=== PATIENT | female | born 1950 ===

== ENCOUNTER 2016-11-05 10:11 | Emergency (ER) | payer MEDICARE, OTHER ==
--- NOTE | 2016-11-05 11:29 | ED PDOC ---
HPI: Seizure Time Seen by Provider: 11/05/16 10:51 Chief Complaint (Nursing): Seizure Chief Complaint (Provider): Seizure History Per: Family History/Exam Limitations: clinical condition Recent Seizure Activity Began: Just Before Arrival Number Of Seizures: One Length Of Seizures (Duration): Minutes (2) Quality Of Seizure: Generalized Associated Symptoms: denies: Bit Tongue, Injury As A Result Of Seizure Activity Post-ictal Period: Yes Severity: Moderate Additional History Per: Family Additional Complaint(s): The pt is a 66yo female, Hx of dementia, brought to the ED by her daughter for evaluation s/p the daughter witnessed a seizure around 0930 this morning. A full HPI and ROS is unavailable from the pt due to her clinical condition, daughter is serving as historian. Daughter reports the pt was lying on couch when the symptoms started and the seizure lasted about 2 minutes with a post ictal period. Daughter denies any tongue biting and is unsure about incontinence. Of note, daughter states the pt has just finished a course of Bactrim 4 days ago for a UTI, denies any fever. Of note, pt is on Lamictal, Imodium and is complaint per daughter. Daughter offers no additional medical complaints. Past Medical History Reviewed: Historical Data, Nursing Documentation, Vital Signs Vital Signs: Last Vital Signs Temp 97.5 F L 11/05/16 16:14 Pulse 67 11/05/16 16:14 Resp 18 11/05/16 16:14 BP 126/72 11/05/16 16:14 Pulse Ox 99 11/05/16 16:14 - Medical History PMH: Alzheimer's Disease, CVA, Dementia, Depression, Diabetes, HTN, Seizures Denies: Arthritis, CHF, HIV, Hypercholesterolemia, Hypothyroidism, Chronic Kidney Disease, Rheumatoid Arthritis - Family History Family History: States: Unknown Family Hx - Living Arrangements Living Arrangements: With Family - Social History Current smoker - smoking cessation education provided: No Alcohol: None Drugs: Denies - Home Medications Home Medications: Ambulatory Orders Medication Instructions Recorded Aspirin [Aspirin Chewable] 81 mg PO DAILY 02/27/16 Donepezil [Aricept] 10 mg PO DAILY 02/27/16 Escitalopram [Lexapro] 10 mg PO DAILY 02/27/16 Carbidopa/Levodopa 25/100 mg 1 tab PO TIDWM #0 tab 02/28/16 [Sinemet] lamoTRIgine [Lamictal] 50 mg PO BID #0 tab 02/28/16 Loperamide [Imodium] 2 mg PO Q8 #10 cap 04/13/16 Azithromycin [Zithromax] 250 mg PO DAILY 5 Days 05/13/16 - Allergies Allergies/Adverse Reactions: Allergies Allergy/AdvReac Type Severity Reaction Status Date / Time No Known Allergies Allergy Verified 11/05/16 10:21 Review of Systems ROS Statement: Except As Marked, All Systems Reviewed And Found Negative Review Of Systems: ROS cannot be obtained secondary to pt's inabilty to answer questions. Constitutional: Negative for: Fever Genitourinary Female: Negative for: Incontinence Neurological: Positive for: Seizures (1 episode witnessed by daughter before arrival), Other (post ictal) Physical Exam - Reviewed Nursing Documentation Reviewed: Yes Vital Signs Reviewed: Yes - Physical Exam Appears: Positive for: Well, Non-toxic, No Acute Distress Head Exam: Positive for: ATRAUMATIC Skin: Positive for: Normal Color, Warm Eye Exam: Positive for: Normal appearance, EOMI, PERRL Neck: Positive for: Normal, Supple Cardiovascular/Chest: Positive for: Regular Rate, Rhythm Respiratory: Positive for: Normal Breath Sounds. Negative for: Respiratory Distress Neurologic/Psych: Positive for: Other (pt currently post ictal) - Laboratory Results Result Diagrams: 11/05/16 11:30 11/05/16 11:30 - ECG O2 Sat by Pulse Oximetry: 97 (RA) Pulse Ox Interpretation: Normal Medical Decision Making Medical Decision Making: Time: 1105 Impression: Seizure Plan: -- Bloodwork -- CXR -- Lamotrigine levels -- Reassess CT Head was done in a previous visit. Findings listed below: EXAM: CT Head Without Intravenous Contrast. CLINICAL HISTORY: 65 years old, female; Signs and symptoms; Altered mental status/memory loss; Additional info: AMS TECHNIQUE: Axial computed tomography images of the head/brain without intravenous contrast. This CT exam was performed using one or more of the following dose reduction techniques: automated exposure control, adjustment of the mA and/or kV according to patient size, and/or use of iterative reconstruction technique. Coronal and sagittal reformatted images were created and reviewed. EXAM DATE/TIME: Exam ordered 05/13/2016 2:23 AM COMPARISON: CT - HEAD W/O CONTRAST 02/27/2016 7:07:35 AM FINDINGS: Brain: There is atrophy which is similar appearance to previous study of February 27, 2016. There is no evidence of mass lesion or midline shift. No hemorrhage. No edema. Ventricles: Prominent, stable. Bones: No fractures are seen. Sinuses: There is no evidence of air-fluid levels to suggest acute sinusitis. Mastoid air cells: Unremarkable as visualized. No mastoid effusion. Orbits: The intraconal fat of the bilateral orbits appears within normal limits and symmetric. IMPRESSION: Stable appearance of the brain compared to previous study of February 27, 2016, with no evidence of acute intracranial hemorrhage. Atrophy greater than typical for age. No abnormality suspicious for acute stroke by noncontrast head CT. If there is clinical suspicion for stroke, please note that other modalities are considered to be more sensitive than noncontrast head CT. Time: [address] Hutchinson who agrees, pt to be d.c home. Scribe Attestation: Documented by Viviane Moraes acting as a scribe for Noy Cohen MD. Provider Attestation: All medical record entries made by the Scribe were at my direction and personally dictated by me. I have reviewed the chart and agree that the record accurately reflects my personal performance of the history, physical exam, medical decision making, and the department course for this patient. I have also personally directed, reviewed, and agree with the discharge instructions and disposition. Disposition - Clinical Impression Clinical Impression: Recurrent seizures - Patient ED Disposition Is Patient to be Admitted: No - Disposition Referrals: Raz Hutchinson MD [Staff Provider] - Disposition: Routine/Home Disposition Time: 14:43 Condition: STABLE Instructions: Recurrent Seizures in Adults (ED)
[2016-11-05 11:56] LABS: ALB/GLOB RATIO 1.4 (1.0-2.1); ALBUMIN 4.1 g/dL (3.5-5.0); CALCIUM 9.5 mg/dL (8.4-10.2)
[2016-11-05 12:03] LABS: BASO % 0.1 % (0.0-2.0); EOS % 0.5 % (0.0-4.0); HEMOGLOBIN 13.5 g/dL (12.0-16.0); LYMPH % 9.9 % (20.0-40.0); MEAN CELL VOLUME 85.6 fl (81.0-99.0); MEAN CORPUSCULAR HEMOGLOBIN 27.6 pg (27.0-31.0); MEAN CORPUSCULAR HGB CONC 32.3 g/dL (33.0-37.0); MEAN PLATELET VOLUME 8.6 fl (7.2-11.7); MONO # 0.4 K/uL (0.0-0.8); MONO % 4.5 % (0.0-10.0); NEUT # 8.4 K/uL (1.8-7.0); PLATELET COUNT 134 K/uL (130-400); RED CELL DISTRIBUTION WIDTH 13.9 % (11.5-14.5); WHITE BLOOD COUNT 9.9 K/uL (4.8-10.8)
[2016-11-05] MEDS ORDERED: Sodium Chloride 0.9% 1,000 ML IV STA (12:38)
--- NOTE | 2016-11-05 13:05 | RAD ---
HISTORY: Seizure COMPARISON: Comparison chest dated 05/13/2016 FINDINGS: LUNGS: Poor inspiration with low lung volumes, crowded bronchovascular markings and mild bibasilar atelectasis. The central pulmonary vasculature is also slightly increased likely due to poor inspiration and supine patient positioning. PLEURA: No significant pleural effusion identified, no pneumothorax apparent. CARDIOVASCULAR: Normal. OSSEOUS STRUCTURES: No significant abnormalities. VISUALIZED UPPER ABDOMEN: Normal. OTHER FINDINGS: None. IMPRESSION: Poor inspiration with low lung volumes, crowded bronchovascular markings and mild bibasilar atelectasis. The central pulmonary vasculature is also slightly increased likely due to poor inspiration and supine patient positioning.
[2016-11-05 13:47] LABS: LYMPHOCYTE 10 % (20-50); MONOCYTE 4 % (0-10); NEUTROPHIL 86 % (42-75); PLATELET ESTIMATE SLIGHTLY DECREASED (NORMAL); TOTAL CELLS COUNTED 100
[2016-11-05 14:22] LABS: SQUAMOUS EPITHIAL < 1 /hpf (0-5); URINE BILIRUBIN NEGATIVE (NEGATIVE); URINE BLOOD NEGATIVE (NEGATIVE); URINE CLARITY CLEAR (Clear); URINE COLOR YELLOW (YELLOW); URINE GLUCOSE (UA) NEG (Normal); URINE LEUKOCYTE ESTERASE NEG Leu/uL (Negative); URINE NITRATE NEGATIVE (NEGATIVE); URINE PROTEIN 100 mg/dL (NEGATIVE); URINE UROBILINOGEN 0.2-1.0 mg/dL (0.2-1.0)
[2016-11-05 16:17] VITALS: BP 126/72; PULSE 67; RESP 18; TEMP 97.5
[2016-11-07 10:50] LABS: LAMOTRIGINE 1.2 mcg/mL (4.0-18.0)
--- NOTE | 2016-11-07 11:50 | CARD ---
APPROVED REPORT EKG Measurement Heart [id number] IA [id number] <Conclusion> Normal sinus rhythm Cannot rule out Inferior infarct, age undetermined Possible Anterolateral infarct, age undetermined Abnormal ECG
[2016-11-14 09:39] VITALS: O2SAT 97
== END 2016-11-05 16:17 | disposition home or self-care (01) ==
LOC: H.ER 10:11
DX: R56.9 Unspecified convulsions (principal); F03.90 Unspecified dementia, unspecified severity, without behavioral disturbance, psychotic disturbance, mood disturbance, and anxiety; E11.9 Type 2 diabetes mellitus without complications
CPT/HCPCS: 71010; 80053; 80299; 81003; 82948; 85025; 93005; 99285; J7040

== ENCOUNTER 2017-06-14 10:51 | Emergency (ER) | payer MEDICARE, OTHER ==
[2017-06-14 10:54] VITALS: BMI 29.0
[2017-06-14] MEDS ORDERED: Sodium Chloride 0.9% 1,000 ML IV STA (11:05)
--- NOTE | 2017-06-14 11:09 | ED PDOC ---
HPI: Neurologic - General Time Seen by Provider: 06/14/17 10:55 Chief Complaint (Provider): Seizure Source: family Exam Limitations: clinical condition - History of Present Illness Allergies/Adverse Reactions: Allergies No Known Allergies Allergy (Verified 11/05/16 10:21) Home Medications: Ambulatory Orders Aspirin [Aspirin Chewable] 81 mg PO DAILY 02/27/16 Donepezil [Aricept] 10 mg PO DAILY 02/27/16 Escitalopram [Lexapro] 10 mg PO DAILY 02/27/16 Carbidopa/Levodopa 25/100 mg [Sinemet] 1 tab PO TIDWM #0 tab 02/28/16 lamoTRIgine [Lamictal] 50 mg PO BID #0 tab 02/28/16 Loperamide [Imodium] 2 mg PO Q8 #10 cap 04/13/16 Azithromycin [Zithromax] 250 mg PO DAILY 5 Days tab 05/13/16 Additional Complaint(s): Pt. was being taken to the bathroom by daughter today morning. After moving her bowel pt. had foaming at the mouth, tightening of her extremities. Lasted 10 seconds and had decreased responsiveness after. Pt. getting better now per daughter. Daughter states pt. has seizures and this is not new. Did not hit her head. She gets seizures when on antibiotics or gets infection. She is on day 7 of bactrim for uti and uri. Pt. limited h and p as she has dementia and stroke. Pt. with some cough. No runny nose. No diarrhea or vomit. Past Medical History Reviewed: Nursing Documentation, Vital Signs Vital Signs: Last Vital Signs Temp 97.0 F L 06/14/17 10:53 Pulse 95 H 06/14/17 10:53 Resp 16 06/14/17 10:53 BP 127/70 06/14/17 10:53 Pulse Ox 95 06/14/17 10:53 - Medical History PMH: Alzheimer's Disease, CVA (R side weakness), Dementia, Depression, Diabetes , HTN, Seizures Denies: Arthritis, CHF, HIV, Hypercholesterolemia, Hypothyroidism, Chronic Kidney Disease, Rheumatoid Arthritis - Family History Family History: States: Unknown Family Hx - Home Medications Home Medications: Ambulatory Orders Medication Instructions Recorded Aspirin [Aspirin Chewable] 81 mg PO DAILY 02/27/16 Donepezil [Aricept] 10 mg PO DAILY 02/27/16 Escitalopram [Lexapro] 10 mg PO DAILY 02/27/16 Carbidopa/Levodopa 25/100 mg 1 tab PO TIDWM #0 tab 02/28/16 [Sinemet] lamoTRIgine [Lamictal] 50 mg PO BID #0 tab 02/28/16 Loperamide [Imodium] 2 mg PO Q8 #10 cap 04/13/16 Azithromycin [Zithromax] 250 mg PO DAILY 5 Days tab 05/13/16 - Allergies Allergies/Adverse Reactions: Allergies Allergy/AdvReac Type Severity Reaction Status Date / Time No Known Allergies Allergy Verified 11/05/16 10:21 Review of Systems Review Of Systems: ROS cannot be obtained secondary to pt's inabilty to answer questions. Physical Exam - Reviewed Nursing Documentation Reviewed: Yes Vital Signs Reviewed: Yes - Physical Exam Appears: Positive for: Non-toxic, No Acute Distress Head Exam: Positive for: ATRAUMATIC, NORMAL INSPECTION, NORMOCEPHALIC Skin: Positive for: Normal Color, Warm, DRY Eye Exam: Positive for: PERRL ENT: Positive for: Normal ENT Inspection. Negative for: Nasal Congestion, Pharyngeal Erythema Neck: Positive for: Normal, Painless ROM, Supple Cardiovascular/Chest: Positive for: Regular Rate, Rhythm Respiratory: Positive for: Normal Breath Sounds. Negative for: Accessory Muscle Use Gastrointestinal/Abdominal: Positive for: Normal Exam, Bowel Sounds, Soft. Negative for: Tenderness Back: Positive for: Normal Inspection. Negative for: L CVA Tenderness, R CVA Tenderness Extremity: Negative for: Tenderness, Pedal Edema Neurologic/Psych: Positive for: Alert (moderately), Other (does not follow commands; moving extremities mildly on will; not communicating) - Laboratory Results Result Diagrams: 06/14/17 11:55 06/14/17 11:55 Interpretation Of Abn Labs: 1.3 cr - ECG ECG: Positive for: Interpreted By Me, Viewed By Me ECG Rhythm: Positive for: Normal QRS, Sinus Rhythm, Nonspecific Changes Interpretation Of Abn EKG: same as old O2 Sat by Pulse Oximetry: 95 Pulse Ox Interpretation: Normal - Radiology X-Ray: Read By Radiologist X-Ray Interpretation: No Acute Disease - CT Scan/US head Other Rad Studies (CT/US): Read By Radiologist Other Rad Interpretation: no acute - Progress ED Course And Treament: 1332: Stable. AAOx3. Pain free. Tolerated PO. Ambulated. CR borderline. Pt. daughter aware and to fu. 1356: Stable. Spoke with Dr. Hutchinson. Agree to dc and fu. No additional tx. Disposition - Clinical Impression Clinical Impression: Seizure - Patient ED Disposition Is Patient to be Admitted: No Counseled Patient/Family Regarding: Studies Performed, Diagnosis, Need For Followup - Disposition Referrals: [facility] [Outside] - 06/16/17 Raz Hutchinson MD [Staff Provider] - 06/16/17 Disposition: Routine/Home Disposition Time: 13:33 Condition: STABLE Additional Instructions: Return if not better in 3 days. Instructions: Epilepsy (ED)
--- NOTE | 2017-06-14 11:45 | RAD ---
HISTORY: seizure COMPARISON: Chest radiograph dated 11/05/2016. FINDINGS: LUNGS: No active pulmonary disease. PLEURA: No significant pleural effusion identified, no pneumothorax apparent. CARDIOVASCULAR: Normal. OSSEOUS STRUCTURES: Unchanged. VISUALIZED UPPER ABDOMEN: Normal. OTHER FINDINGS: None. IMPRESSION: No active disease.
[2017-06-14 12:35] LABS: BASO % 0.2 % (0.0-2.0); EOS # 0.1 K/uL (0.0-0.7); HEMOGLOBIN 13.7 g/dL (12.0-16.0); LYMPH # 1.4 K/uL (1.0-4.3); LYMPH % 19.9 % (20.0-40.0); MEAN CELL VOLUME 85.5 fl (81.0-99.0); MEAN CORPUSCULAR HEMOGLOBIN 27.5 pg (27.0-31.0); MEAN CORPUSCULAR HGB CONC 32.2 g/dL (33.0-37.0); MEAN PLATELET VOLUME 8.7 fl (7.2-11.7); MONO # 0.4 K/uL (0.0-0.8); MONO % 4.9 % (0.0-10.0); NEUT # 5.2 K/uL (1.8-7.0); NRBC % 0.2 % (0.0-0.0); RBC 4.99 Mil/uL (3.80-5.20); RED CELL DISTRIBUTION WIDTH 14.4 % (11.5-14.5); WHITE BLOOD COUNT 7.2 K/uL (4.8-10.8)
[2017-06-14 12:58] LABS: INR 1.1 (0.9-1.2); PARTIAL THROMBOPLASTIN TIME 30.3 Seconds (25.6-37.1); PROTHROMBIN TIME 12.1 Seconds (9.8-13.1)
--- NOTE | 2017-06-14 13:05 | CT ---
PROCEDURE: CT HEAD WITHOUT CONTRAST. HISTORY: headache COMPARISON: CT head dated 12/31/2016. TECHNIQUE: Axial computed tomography images were obtained through the head/brain without intravenous contrast. Radiation dose: Total exam DLP = 1036.6 mGy-cm. This CT exam was performed using one or more of the following dose reduction techniques: Automated exposure control, adjustment of the mA and/or kV according to patient size, and/or use of iterative reconstruction technique. FINDINGS: HEMORRHAGE: No intracranial hemorrhage. BRAIN: No mass effect or edema. Severe atrophy. No significant microvascular ischemic changes. VENTRICLES: Mild prominence of the ventricles in excess of cerebral atrophy. CALVARIUM: Unremarkable. PARANASAL SINUSES: Unremarkable as visualized. No significant inflammatory changes. MASTOID AIR CELLS: Unremarkable as visualized. No inflammatory changes. OTHER FINDINGS: None. IMPRESSION: No acute intracranial pathology. Stable severe cerebral atrophy for age. Mild prominence of the ventricles in excess of cerebral atrophy may represent a component of communicating hydrocephalus
[2017-06-14 13:07] LABS: ALB/GLOB RATIO 1.3 (1.0-2.1); ALBUMIN 3.9 g/dL (3.5-5.0); ALT/SGPT 31 U/L (9-52); AST/SGOT 23 U/L (14-36); BLOOD UREA NITROGEN 16 mg/dl (7-17); CALCIUM 9.6 mg/dL (8.4-10.2); GFR AFRICAN-AMERICAN 49; GFR NON-AFRICAN AMERICAN 41
[2017-06-14 14:55] VITALS: BP 124/76; PULSE 76; RESP 18; TEMP 98.1; O2SAT 100
--- NOTE | 2017-06-15 11:26 | CARD ---
APPROVED REPORT EKG Measurement Heart [id number] VT [id number] <Conclusion> Normal sinus rhythm Left axis deviation Possible Anterior infarct, age undetermined Abnormal ECG
== END 2017-06-14 14:57 | disposition home or self-care (01) ==
LOC: H.ER 10:51
DX: G40.909 Epilepsy, unspecified, not intractable, without status epilepticus (principal); F02.80 Dementia in other diseases classified elsewhere, unspecified severity, without behavioral disturbance, psychotic disturbance, mood disturbance, and anxiety; E11.9 Type 2 diabetes mellitus without complications; G30.9 Alzheimer's disease, unspecified; I10 Essential (primary) hypertension; Z86.73 Personal history of transient ischemic attack (TIA), and cerebral infarction without residual deficits
CPT/HCPCS: 70450; 71045; 80053; 82948; 84484; 85025; 85610; 85730; 87804; 93005; 99284; J7040

== ENCOUNTER 2017-09-09 10:08 | Emergency (ER) | payer MEDICARE, OTHER ==
[2017-09-09 10:08] VITALS: BMI 29.0
[2017-09-09 10:17] VITALS: TEMP 97; O2SAT 98
--- NOTE | 2017-09-09 12:25 | RAD ---
PROCEDURE: Radiographs of the pelvis. HISTORY: Fall COMPARISON: CT scan of the abdomen pelvis dated 05/16/2015. FINDINGS: BONES: Pelvic Bones: Unremarkable. Hips: Grossly unremarkable. JOINTS: Sacroiliac Joints: Unremarkable. Pubic Symphysis: Unremarkable. OTHER FINDINGS: None. IMPRESSION: Unremarkable radiographs of the pelvis.
--- NOTE | 2017-09-09 12:26 | RAD ---
PROCEDURE: Right Knee Radiographs. HISTORY: Fall COMPARISON: Right knee radiographs dated 02/22/2009. FINDINGS: BONES: No acute fracture. JOINTS: Unremarkable. JOINT EFFUSION: None. OTHER FINDINGS: None. IMPRESSION: No demonstrated fracture or dislocation.
--- NOTE | 2017-09-09 12:26 | RAD ---
HISTORY: Fall COMPARISON: Chest radiograph dated 06/14/2017. FINDINGS: LUNGS: Low lung volumes. No active pulmonary disease. PLEURA: No significant pleural effusion identified, no pneumothorax apparent. CARDIOVASCULAR: Normal. OSSEOUS STRUCTURES: Unchanged. VISUALIZED UPPER ABDOMEN: Normal. OTHER FINDINGS: None. IMPRESSION: No active disease.
--- NOTE | 2017-09-09 13:19 | CT ---
PROCEDURE: CT HEAD WITHOUT CONTRAST. HISTORY: Head injury COMPARISON: Unenhanced head CT 06/14/2017. TECHNIQUE: Axial computed tomography images were obtained through the head/brain without intravenous contrast. Radiation dose: Total exam DLP = 1073.36 mGy-cm. This CT exam was performed using one or more of the following dose reduction techniques: Automated exposure control, adjustment of the mA and/or kV according to patient size, and/or use of iterative reconstruction technique. FINDINGS: HEMORRHAGE: No intracranial hemorrhage. BRAIN: Age related neuro degenerative changes are appreciated which generally appear age-appropriate an are manifest by expansion of the ventricles sulci and cisterns. Persistent dilatation of the ventricular system is again appreciated diffusely representing either central atrophy or communicating hydrocephalus as previously suggested. Clinically correlate further. No further dilatation of the ventricles is appreciated in the interval. VENTRICLES: Stable as above but remaining prominent throughout. CALVARIUM: No destructive bony lesion or displaced fracture identified including through the skullbase. However, a moderate right frontotemporal scalp hematoma is appreciated. PARANASAL SINUSES: Unremarkable as visualized. No significant inflammatory changes. MASTOID AIR CELLS: Unremarkable as visualized. No inflammatory changes. OTHER FINDINGS: None. IMPRESSION: No intracranial hemorrhage. A moderate right frontotemporal scalp hematoma is identified without underlying fracture associated. Stable age-appropriate age related neuro degenerative findings as discussed above. Dilated ventricular system is unchanged representing either central atrophy or communicating hydrocephalus, not significantly changed in the interval. Clinically correlate further.
--- NOTE | 2017-09-09 13:29 | CT ---
PROCEDURE: CT Cervical Spine without contrast HISTORY: Fall COMPARISON: None available. TECHNIQUE: Axial computed tomography images were obtained of the cervical spine without the use of intravenous contrast. Coronal and sagittal reformatted images were created and reviewed. Radiation dose: Total exam DLP = 614.20 mGy-cm. This CT exam was performed using one or more of the following dose reduction techniques: Automated exposure control, adjustment of the mA and/or kV according to patient size, and/or use of iterative reconstruction technique. FINDINGS: VERTEBRAE: No fracture. Straightened curvature. No destructive bony lesion. C1-2 articulation is degenerated but otherwise intact. The craniocervical junction is intact as well. DISCS/SPINAL CANAL/NEURAL FORAMINA: A small central disc herniation is identified at C3-4 without significant central stenosis appreciable nevertheless. Impingement or encroachment of the ventral nerve roots is likely. No significant neural foraminal stenosis. Slightly irregular disc osteophyte complex is appreciate without significant central canal stenosis of the ventral nerve roots are likely encroached. Borderline bilateral neural foraminal stenoses are identified on degenerative basis. Additional irregular disc osteophyte complex is appreciated likely Ing approaching ventral nerve roots without significant stenosis. No significant neural foraminal stenosis. PARASPINAL SOFT TISSUES: Unremarkable. OTHER FINDINGS: None. IMPRESSION: A small central disc herniation is identified at C3-4 without significant central stenosis appreciable. Encroachment if not impingement of the ventral nerve roots is suggested. Multilevel this after complex appreciate which are small and do not cause significant central canal or neural foraminal stenosis. Straightened cervical curvature without fracture or spondylolisthesis.
--- NOTE | 2017-09-09 14:30 | ED PDOC ---
HPI: Head Injury Time Seen by Provider: 09/09/17 10:35 Chief Complaint (Nursing): Headache Chief Complaint (Provider): Headache History Per: Family (daughter) History/Exam Limitations: clinical condition (dementia) Injury Occurred (Timing): Just Before Arrival Onset/Duration Of Symptoms: Sudden Onset Patient States: Fell Striking Head Additional Complaint(s): 67 year old female with medical history of dementia/Alzheimer's disease, presents to the emergency department via EMS with daughter for an evaluation of a bump to her right side of head and right knee abrasions status post fall prior to arrival. Daughter states she was helping patient onto the toilet, left to grab something from another room then came back and found that patient had fallen to the ground. She denies any vomiting, loss of consciousness, or seizure -like activities. PMD: none provided Past Medical History Reviewed: Historical Data, Nursing Documentation, Vital Signs Vital Signs: Last Vital Signs Temp 97 F L 09/09/17 10:14 Pulse 63 09/09/17 10:14 Resp 20 09/09/17 10:14 BP 140/70 09/09/17 10:14 Pulse Ox 98 09/09/17 10:14 - Medical History PMH: Alzheimer's Disease, CVA (R side weakness), Dementia, Depression, Diabetes , HTN, Seizures, TIA Denies: Arthritis, CHF, HIV, Hypercholesterolemia, Hypothyroidism, Chronic Kidney Disease, Rheumatoid Arthritis - Surgical History Surgical History: Denies: No Surg Hx Other surgeries: tubal ligation - Family History Family History: States: Unknown Family Hx - Social History Current smoker - smoking cessation education provided: No Ex-Smoker (has not smoked in the last 12 months): Yes Alcohol: None Drugs: Denies - Home Medications Home Medications: Ambulatory Orders Medication Instructions Recorded Aspirin [Aspirin Chewable] 81 mg PO DAILY 02/27/16 Donepezil [Aricept] 10 mg PO DAILY 02/27/16 Escitalopram [Lexapro] 10 mg PO DAILY 02/27/16 Carbidopa/Levodopa 25/100 mg 1 tab PO TIDWM #0 tab 02/28/16 [Sinemet] lamoTRIgine [Lamictal] 50 mg PO BID #0 tab 02/28/16 Loperamide [Imodium] 2 mg PO Q8 #10 cap 04/13/16 Azithromycin [Zithromax] 250 mg PO DAILY 5 Days tab 05/13/16 - Allergies Allergies/Adverse Reactions: Allergies Allergy/AdvReac Type Severity Reaction Status Date / Time No Known Allergies Allergy Verified 11/05/16 10:21 Review of Systems ROS Statement: Except As Marked, All Systems Reviewed And Found Negative Gastrointestinal: Negative for: Vomiting Musculoskeletal: Positive for: Leg Pain (right knee abrasion) Neurological: Positive for: Headache (right-sided bump). Negative for: Seizures , Other (LOC) Physical Exam - Reviewed Nursing Documentation Reviewed: Yes Vital Signs Reviewed: Yes - Physical Exam Appears: Positive for: Non-toxic, No Acute Distress Head Exam: Negative for: ATRAUMATIC Eye Exam: Positive for: Normal appearance, EOMI, PERRL. Negative for: Periorbital swelling Cardiovascular/Chest: Positive for: Regular Rate, Rhythm, Chest Non Tender. Negative for: Murmur Respiratory: Positive for: Normal Breath Sounds. Negative for: Wheezing, Respiratory Distress Back: Positive for: Normal Inspection. Negative for: L CVA Tenderness, R CVA Tenderness Extremity: Positive for: Normal ROM (lower bilaterally), Other (right anterior knee superfical abrasion). Negative for: Deformity (upper/lower) Neurologic/Psych: Positive for: Alert, Oriented, Other (right forehead hematoma) . Negative for: Motor/Sensory Deficits - ECG O2 Sat by Pulse Oximetry: 98 (RA) Pulse Ox Interpretation: Normal Medical Decision Making Medical Decision Making: Initial Impression: Head and knee injuries S/P fall Initial Plan: * CT Cspine without contrast * CT head without contrast * CXR * Accucheck * Xray knee (right) * Xray pelvis Time: 1225 --CXR: no active disease. --Knee (right) and pelvis XRs: no fractures or dislocations. Time: 1318 --CT Head FINDINGS: HEMORRHAGE: No intracranial hemorrhage. BRAIN: Age related neuro degenerative changes are appreciated which generally appear age-appropriate an are manifest by expansion of the ventricles sulci and cisterns. Persistent dilatation of the ventricular system is again appreciated diffusely representing either central atrophy or communicating hydrocephalus as previously suggested. Clinically correlate further. No further dilatation of the ventricles is appreciated in the interval. VENTRICLES: Stable as above but remaining prominent throughout. CALVARIUM: No destructive bony lesion or displaced fracture identified including through the skullbase. However, a moderate right frontotemporal scalp hematoma is appreciated. PARANASAL SINUSES: Unremarkable as visualized. No significant inflammatory changes. MASTOID AIR CELLS: Unremarkable as visualized. No inflammatory changes. OTHER FINDINGS: None. IMPRESSION: No intracranial hemorrhage. A moderate right frontotemporal scalp hematoma is identified without underlying fracture associated. Stable age-appropriate age related neuro degenerative findings as discussed above. Dilated ventricular system is unchanged representing either central atrophy or communicating hydrocephalus, not significantly changed in the interval. Clinically correlate further. Time: 1327 --CT C-Spine FINDINGS: VERTEBRAE: No fracture. Straightened curvature. No destructive bony lesion. C1-2 articulation is degenerated but otherwise intact. The craniocervical junction is intact as well. DISCS/SPINAL CANAL/NEURAL FORAMINA: A small central disc herniation is identified at C3-4 without significant central stenosis appreciable nevertheless. Impingement or encroachment of the ventral nerve roots is likely. No significant neural foraminal stenosis. Slightly irregular disc osteophyte complex is appreciate without significant central canal stenosis of the ventral nerve roots are likely encroached. Borderline bilateral neural foraminal stenoses are identified on degenerative basis. Additional irregular disc osteophyte complex is appreciated likely Ing approaching ventral nerve roots without significant stenosis. No significant neural foraminal stenosis. PARASPINAL SOFT TISSUES: Unremarkable. OTHER FINDINGS: None. IMPRESSION: A small central disc herniation is identified at C3-4 without significant central stenosis appreciable. Encroachment if not impingement of the ventral nerve roots is suggested. Multilevel this after complex appreciate which are small and do not cause significant central canal or neural foraminal stenosis. Straightened cervical curvature without fracture or spondylolisthesis. Time: 1330 --Pt ate full meal without difficulty. Copy of CT reports given to daughter. Scribe Attestation: Documented by Hamida Griffith, acting as a scribe for Noy Cohen MD. Provider Scribe Attestation: All medical record entries made by the Scribe were at my direction and personally dictated by me. I have reviewed the chart and agree that the record accurately reflects my personal performance of the history, physical exam, medical decision making, and the department course for this patient. I have also personally directed, reviewed, and agree with the discharge instructions and disposition. Disposition - Clinical Impression Clinical Impression: Head injury, Knee abrasion - Disposition Condition: STABLE Additional Instructions: FOLLOW-UP WITH PMD WITHIN 2 DAYS FOR REEVALUATION. Instructions: Skin Abrasions, Closed Head Injury Forms: [employer] (K[place]akh)
[2017-09-09 15:40] VITALS: BP 138/72; PULSE 68; RESP 16
== END 2017-09-09 14:45 | disposition home or self-care (01) ==
LOC: H.ER 10:08
DX: S00.03XA Contusion of scalp, initial encounter (principal); S80.211A Abrasion, right knee, initial encounter; W19.XXXA Unspecified fall, initial encounter; Y92.89 Other specified places as the place of occurrence of the external cause; E11.9 Type 2 diabetes mellitus without complications; F02.80 Dementia in other diseases classified elsewhere, unspecified severity, without behavioral disturbance, psychotic disturbance, mood disturbance, and anxiety; F32.9 Major depressive disorder, single episode, unspecified; G30.9 Alzheimer's disease, unspecified; I10 Essential (primary) hypertension; Z79.82 Long term (current) use of aspirin; Z86.73 Personal history of transient ischemic attack (TIA), and cerebral infarction without residual deficits; Z87.891 Personal history of nicotine dependence

== ENCOUNTER 2018-05-08 14:39 | Observation (INO) | payer MEDICARE, OTHER ==
[2018-05-08 14:40] VITALS: BMI 29.0
[2018-05-08] MEDS ORDERED: Sodium Chloride 0.9% 1,000 ML IV STA ×2 (15:18→18:20)
--- NOTE | 2018-05-08 15:57 | RAD ---
Date of service: 05/08/2018 HISTORY: ROUTINE COMPARISON: Comparison chest 09/09/2017.. FINDINGS: LUNGS: Poor inspiration with low lung volumes, crowded bronchovascular markings and mild bibasilar atelectasis left greater than right. PLEURA: No significant pleural effusion identified, no pneumothorax apparent. CARDIOVASCULAR: No significant aortic atherosclerotic calcification present. Normal cardiac size. No pulmonary vascular congestion. OSSEOUS STRUCTURES: Mild-moderate dextroscoliosis. VISUALIZED UPPER ABDOMEN: Normal. OTHER FINDINGS: None. IMPRESSION: Poor inspiration with low lung volumes, crowded bronchovascular markings and mild bibasilar atelectasis.
[2018-05-08 16:00] LABS: VENOUS BLOOD GAS BASE EXCESS -4.5 mmol/L (0.0-2.0); VENOUS BLOOD GAS PCO2 43 mmHg (40-60); VENOUS BLOOD GAS PO2 45 mm/Hg (30-55); VENOUS BLOOD PH 7.31 (7.32-7.43)
[2018-05-08 16:41] LABS: BASO % 0.2 % (0.0-2.0); EOS # 0.1 K/uL (0.0-0.7); HEMOGLOBIN 16.9 g/dL (12.0-16.0); LYMPH % 8.7 % (20.0-40.0); MEAN CORPUSCULAR HEMOGLOBIN 28.6 pg (27.0-31.0); MEAN CORPUSCULAR HGB CONC 32.2 g/dL (33.0-37.0); MEAN PLATELET VOLUME 9.6 fl (7.2-11.7); MONO # 0.6 K/uL (0.0-0.8); MONO % 4.9 % (0.0-10.0); NEUT # 9.8 K/uL (1.8-7.0); NEUT % 85.2 % (50.0-75.0); NRBC % 0.3 % (0.0-0.0); PLATELET COUNT 125 K/uL (130-400); RBC 5.89 Mil/uL (3.80-5.20); RED CELL DISTRIBUTION WIDTH 14.7 % (11.5-14.5); WHITE BLOOD COUNT 11.5 K/uL (4.8-10.8)
[2018-05-08 16:54] LABS: ALB/GLOB RATIO 1.3 (1.0-2.1); ALBUMIN 4.2 g/dL (3.5-5.0); ALT/SGPT 20 U/L (9-52); AST/SGOT 29 U/L (14-36); BLOOD UREA NITROGEN 22 mg/dl (7-17); CALCIUM 9.9 mg/dL (8.4-10.2); GFR NON-AFRICAN AMERICAN 49
[2018-05-08 17:14] LABS: BANDS 3 % (0-2); EOSINOPHIL 1 % (0-7); LYMPHOCYTE 11 % (20-50); METAMYELOCYTE 1 % (0-0); MONOCYTE 2 % (0-10); NEUTROPHIL 82 % (42-75); PLATELET ESTIMATE SLIGHTLY DECREASED (NORMAL); TOTAL CELLS COUNTED 100
--- NOTE | 2018-05-08 17:43 | ED PDOC ---
HPI: Abdomen Time Seen by Provider: 05/08/18 17:01 Chief Complaint (Nursing): GI Problem Chief Complaint (Provider): GI Problem History Per: Patient History/Exam Limitations: no limitations Onset/Duration Of Symptoms: Days (x7) Additional Complaint(s): The pt is a 67 y/o female with a PMHx of HTN, Dementia, and DM, presenting to the ED with decreased PO intake and increasing cough over the course of this week. In addition, she reports episodes of vomiting and diarrhea today. Of note, patient is bed bound at baseline secondary to dementia. PCP: Dr. Tricia Sweeney Past Medical History Reviewed: Historical Data, Nursing Documentation, Vital Signs Vital Signs: Last Vital Signs Temp 98.8 F 05/08/18 14:52 Pulse 127 H 05/08/18 14:52 Resp 18 05/08/18 14:52 BP 153/82 H 05/08/18 14:52 Pulse Ox 98 05/08/18 14:52 MACARIO Report Viewed: Yes - Medical History PMH: Alzheimer's Disease, CVA (R side weakness), Dementia, Depression, Diabetes, HTN, Seizures, TIA Denies: Arthritis, CHF, HIV, Hypercholesterolemia, Hypothyroidism, Chronic Kidney Disease, Rheumatoid Arthritis - Family History Family History: States: Unknown Family Hx - Home Medications Home Medications: Ambulatory Orders Medication Instructions Recorded Donepezil [Aricept] 10 mg PO HS 02/27/16 Ascorbic Acid [Vitamin C 500 mg 500 mg PO DAILY 05/08/18 Tab] Aspirin [Ecotrin] 81 mg PO DAILY 05/08/18 Brivaracetam [Briviact] 5 ml PO HS 05/08/18 Cefdinir [Omnicef] 300 mg PO Q12 05/08/18 Ergocalciferol (Vitamin D2) 50,000 unit PO TH 05/08/18 [Vitamin D2] Escitalopram [Lexapro] 10 mg PO DAILY 05/08/18 Omeprazole 20 mg PO DAILY 05/08/18 Thiamine [Vitamin B1 Tab] 100 mg PO DAILY 05/08/18 lamoTRIgine [Lamictal] 25 mg PO QAM 05/08/18 - Allergies Allergies/Adverse Reactions: Allergies Allergy/AdvReac Type Severity Reaction Status Date / Time No Known Allergies Allergy Verified 05/08/18 14:52 Review of Systems ROS Statement: Except As Marked, All Systems Reviewed And Found Negative Respiratory: Positive for: Cough Gastrointestinal: Positive for: Vomiting, Diarrhea, Other (decreased PO intake) Physical Exam - Reviewed Nursing Documentation Reviewed: Yes Vital Signs Reviewed: Yes - Physical Exam Appears: Positive for: No Acute Distress Head Exam: Positive for: ATRAUMATIC, NORMAL INSPECTION, NORMOCEPHALIC Skin: Positive for: Normal Color Eye Exam: Positive for: Normal appearance ENT: Positive for: Other (Dry Mucuous Membrane) Neck: Positive for: Normal Cardiovascular/Chest: Positive for: Tachycardia Respiratory: Positive for: Decreased Breath Sounds Gastrointestinal/Abdominal: Positive for: Soft. Negative for: Tenderness Extremity: Positive for: Other (bed bound at baseline) Neurologic/Psych: Negative for: Other (arouseable by verbal or painful stimuli) - Laboratory Results Result Diagrams: 05/08/18 15:40 05/08/18 15:40 - ECG O2 Sat by Pulse Oximetry: 98 - Progress ED Course And Treament: NS 1 liter 500 ml per hour influenza a/b neg d/w DR. Lane. Medical Decision Making Medical Decision Making: Time: 1517 Plan: - Venous Blood Gas Shock Panel - EKG - Labs - CBC - CXR - IV Fluids - Blood Culture - Influenza A B Time:1729 - EKG: tachycardia at 101 bpm. no acute changes. Q wave at V4-V6. Time: 1753 --CXR FINDINGS: LUNGS: Poor inspiration with low lung volumes, crowded bronchovascular markings and mild bibasilar atelectasis left greater than right. PLEURA: No significant pleural effusion identified, no pneumothorax apparent. CARDIOVASCULAR: No significant aortic atherosclerotic calcification present. Normal cardiac size. No pulmonary vascular congestion. OSSEOUS STRUCTURES: Mild-moderate dextroscoliosis. VISUALIZED UPPER ABDOMEN: Normal. OTHER FINDINGS: None. IMPRESSION: Poor inspiration with low lung volumes, crowded bronchovascular markings and mild bibasilar atelectasis. Scribe Attestation: Documented by Ta Wing, acting as a scribe for Ramon Brennan PA-C. Provider Scribe Attestation: All medical record entries made by the Scribe were at my direction and personally dictated by me. I have reviewed the chart and agree that the record accurately reflects my personal performance of the history, physical exam, medical decision making, and the department course for this patient. I have also personally directed, reviewed, and agree with the discharge instructions and disposition. Disposition - Clinical Impression Clinical Impression: Gastroenteritis, Dehydration - Patient ED Disposition Is Patient to be Admitted: Yes - Disposition Disposition Time: 17:56 Condition: FAIR - Pt Status Changed To: Hospital Disposition Of: Observation
--- NOTE | 2018-05-08 18:33 | CP.PCM.HP ---
<Lara Romo - Last Filed: 05/08/18 18:23> History of Present Illness - History of Present Illness History of Present Illness: 67 y/o female with a PMHx of HTN, Dementia, DM and CVA with residual R side weakness presenting to the ED accompanied by her daughters who reports decreased PO intake and increasing cough over the course of this week. Patient in non verbal and history is taken from daughters. They also reports 6 episodes of watery diarrhea today and 1 episode of NBNB vomiting. They call to PMD and were advised to bring her to ED. Otherwise they denies fever, chills, sob, p alpitations, melena, hematemesis or hematochezia, no sick contacts. Of note, patient is bed bound at baseline secondary to dementia. During assessment in ED patient was noted eating and drinking w/o difficulty. PCP: Dr. Tricia Sweeney PMH: Alzheimer's Disease, CVA (R side weakness), Dementia, Depression, Diabetes, HTN, Seizures, TIA PSH: Denies FH: Unknown Meds: see sveta LARA SH: denies etoh, tobacco, ilicit drug use Present on Admission - Present on Admission Any Indicators Present on Admission: No Review of Systems - Review of Systems All systems: reviewed and no additional remarkable complaints except (HPI) Past Patient History - Past Medical History & Family History Past Medical History?: Yes - Past Social History Smoking Status: Former Smoker - CARDIAC Hx Congestive Heart Failure: No Hx Hypercholesterolemia: No Hx Hypertension: Yes - PULMONARY Hx Respiratory Disorders: No - NEUROLOGICAL Hx Alzheimer's Disease: Yes Hx Dementia: Yes Hx Seizures: Yes Hx Transient Ischemic Attacks (TIA): Yes - HEENT Hx HEENT Problems: No - RENAL Hx Chronic Kidney Disease: No - ENDOCRINE/METABOLIC Hx Hypothyroidism: No - HEMATOLOGICAL/ONCOLOGICAL Hx Human Immunodeficiency Virus (HIV): No - INTEGUMENTARY Hx Dermatological Problems: No - MUSCULOSKELETAL/RHEUMATOLOGICAL Hx Arthritis: No Hx Rheumatoid Arthritis: No - GASTROINTESTINAL Hx Gastrointestinal Disorders: No - GENITOURINARY/GYNECOLOGICAL Hx Genitourinary Disorders: No - PSYCHIATRIC Hx Depression: Yes - SURGICAL HISTORY Hx Surgeries: Yes Hx Tubal Ligation: Yes - ANESTHESIA Hx Anesthesia: Yes Hx Anesthesia Reactions: No Hx Malignant Hyperthermia: No Meds Allergies/Adverse Reactions: Allergies Allergy/AdvReac Type Severity Reaction Status Date / Time No Known Allergies Allergy Verified 05/08/18 14:52 Physical Exam - Constitutional Appears: No Acute Distress - Head Exam Head Exam: NORMAL INSPECTION - Eye Exam Eye Exam: EOMI, PERRL - ENT Exam ENT Exam: Mucous Membranes Dry - Respiratory Exam Respiratory Exam: Clear to Auscultation Bilateral, NORMAL BREATHING PATTERN - Cardiovascular Exam Cardiovascular Exam: Tachycardia, REGULAR RHYTHM, +S1, +S2 - GI/Abdominal Exam GI & Abdominal Exam: Normal Bowel Sounds, Soft. absent: Distended, Tenderness - Extremities Exam Extremities exam: Negative for: pedal edema - Neurological Exam Additional comments: Non verbal but responds to voice and able to follow simple commands. Results - Vital Signs Recent Vital Signs: Last Vital Signs Temp 98.8 F 05/08/18 14:52 Pulse 127 H 05/08/18 14:52 Resp 18 05/08/18 14:52 BP 153/82 H 05/08/18 14:52 Pulse Ox 98 05/08/18 18:19 - Labs Result Diagrams: 05/08/18 15:40 05/08/18 15:40 Labs: Laboratory Results - last 24 hr 05/08/18 05/08/18 05/08/18 15:40 15:40 15:57 WBC 11.5 H D RBC 5.89 H Hgb 16.9 H D Hct 52.4 H MCV 89.0 D MCH 28.6 MCHC 32.2 L RDW 14.7 H Plt Count 125 L MPV 9.6 Neut % (Auto) 85.2 H Lymph % (Auto) 8.7 L Andrews % (Auto) 4.9 Eos % (Auto) 1.0 Baso % (Auto) 0.2 Neut # (Auto) 9.8 H Lymph # (Auto) 1.0 Andrews # (Auto) 0.6 Eos # (Auto) 0.1 Baso # (Auto) 0.0 Neutrophils % (Manual) 82 H Band Neutrophils % 3 H Lymphocytes % (Manual) 11 L Monocytes % (Manual) 2 Eosinophils % (Manual) 1 Metamyelocytes % 1 H Platelet Estimate Slightly decreased L RBC Morphology Normal pO2 45 VBG pH 7.31 L VBG pCO2 43 VBG HCO3 20.8 VBG Total CO2 23.0 VBG O2 Sat (Calc) 77.2 H VBG Base Excess -4.5 L VBG Potassium 4.1 Glucose 218 H Lactate 1.8 FiO2 21.0 Sodium 147 140.0 Potassium 4.4 Chloride 115 H 113.0 H Carbon Dioxide 17 L Anion Gap 19 BUN 22 H Creatinine 1.1 Est GFR ( Amer) 60 Est GFR (Non-Af Amer) 49 Random Glucose 208 H Calcium 9.9 Magnesium 2.1 Total Bilirubin 0.5 AST 29 ALT 20 Alkaline Phosphatase 113 Troponin I < 0.0120 Total Protein 7.5 Albumin 4.2 Globulin 3.3 Albumin/Globulin Ratio 1.3 Venous Blood Potassium 4.1 Influenza Typ A,B (EIA) 05/08/18 16:37 WBC RBC Hgb Hct MCV MCH MCHC RDW Plt Count MPV Neut % (Auto) Lymph % (Auto) Andrews % (Auto) Eos % (Auto) Baso % (Auto) Neut # (Auto) Lymph # (Auto) Andrews # (Auto) Eos # (Auto) Baso # (Auto) Neutrophils % (Manual) Band Neutrophils % Lymphocytes % (Manual) Monocytes % (Manual) Eosinophils % (Manual) Metamyelocytes % Platelet Estimate RBC Morphology pO2 VBG pH VBG pCO2 VBG HCO3 VBG Total CO2 VBG O2 Sat (Calc) VBG Base Excess VBG Potassium Glucose Lactate FiO2 Sodium Potassium Chloride Carbon Dioxide Anion Gap BUN Creatinine Est GFR ( Amer) Est GFR (Non-Af Amer) Random Glucose Calcium Magnesium Total Bilirubin AST ALT Alkaline Phosphatase Troponin I Total Protein Albumin Globulin Albumin/Globulin Ratio Venous Blood Potassium Influenza Typ A,B (EIA) Negative for flu a/b Assessment & Plan - Assessment and Plan (Free Text) Assessment: 67 y/o female with a PMHx of HTN, Dementia, and DM admitted for management of dehydration. Plan: Dehydration - 2/2 to diarrhea and vomiting - afebrile, tachy - BUN/Cr 22/1.1 - s/p NS bolus x1 in ED - continue IVF - liquid diet - labs in am Leukocytosis - WBC 11.5, likely reactive - afebrile - CXR: Poor inspiration, crowded bronchovascular markings and mild bibasilar atelectasis. - flu serology negative - f/u abs in am HTN - elevated in ED - continue home meds H/O of CVA - bed bound, residual R side weakness - continue home meds Prophylaxis DVT: lovenox GI: protonix Case seen and discussed with Dr Lane. <Cayetano Lane - Last Filed: 05/09/18 09:55> Results - Vital Signs Recent Vital Signs: Last Vital Signs Temp 96.9 F L 05/09/18 08:20 Pulse 76 05/09/18 08:20 Resp 20 05/09/18 08:20 BP 151/87 H 05/09/18 08:20 Pulse Ox 97 05/09/18 08:20 - Labs Result Diagrams: 05/09/18 05:30 05/09/18 05:30 Labs: Laboratory Results - last 24 hr 05/08/18 05/08/18 05/08/18 15:40 15:40 15:57 WBC 11.5 H D RBC 5.89 H Hgb 16.9 H D Hct 52.4 H MCV 89.0 D MCH 28.6 MCHC 32.2 L RDW 14.7 H Plt Count 125 L MPV 9.6 Neut % (Auto) 85.2 H Lymph % (Auto) 8.7 L Andrews % (Auto) 4.9 Eos % (Auto) 1.0 Baso % (Auto) 0.2 Neut # (Auto) 9.8 H Lymph # (Auto) 1.0 Andrews # (Auto) 0.6 Eos # (Auto) 0.1 Baso # (Auto) 0.0 Neutrophils % (Manual) 82 H Band Neutrophils % 3 H Lymphocytes % (Manual) 11 L Monocytes % (Manual) 2 Eosinophils % (Manual) 1 Metamyelocytes % 1 H Platelet Estimate Slightly decreased L RBC Morphology Normal pO2 45 VBG pH 7.31 L VBG pCO2 43 VBG HCO3 20.8 VBG Total CO2 23.0 VBG O2 Sat (Calc) 77.2 H VBG Base Excess -4.5 L VBG Potassium 4.1 Glucose 218 H Lactate 1.8 FiO2 21.0 Sodium 147 140.0 Potassium 4.4 Chloride 115 H 113.0 H Carbon Dioxide 17 L Anion Gap 19 BUN 22 H Creatinine 1.1 Est GFR ( Amer) 60 Est GFR (Non-Af Amer) 49 POC Glucose (mg/dL) Random Glucose 208 H Calcium 9.9 Magnesium 2.1 Total Bilirubin 0.5 AST 29 ALT 20 Alkaline Phosphatase 113 Troponin I < 0.0120 Total Protein 7.5 Albumin 4.2 Globulin 3.3 Albumin/Globulin Ratio 1.3 Venous Blood Potassium 4.1 Influenza Typ A,B (EIA) 05/08/18 05/08/18 05/09/18 16:37 21:55 05:26 WBC RBC Hgb Hct MCV MCH MCHC RDW Plt Count MPV Neut % (Auto) Lymph % (Auto) Andrews % (Auto) Eos % (Auto) Baso % (Auto) Neut # (Auto) Lymph # (Auto) Andrews # (Auto) Eos # (Auto) Baso # (Auto) Neutrophils % (Manual) Band Neutrophils % Lymphocytes % (Manual) Monocytes % (Manual) Eosinophils % (Manual) Metamyelocytes % Platelet Estimate RBC Morphology pO2 VBG pH VBG pCO2 VBG HCO3 VBG Total CO2 VBG O2 Sat (Calc) VBG Base Excess VBG Potassium Glucose Lactate FiO2 Sodium Potassium Chloride Carbon Dioxide Anion Gap BUN Creatinine Est GFR ( Amer) Est GFR (Non-Af Amer) POC Glucose (mg/dL) 183 H 172 H Random Glucose Calcium Magnesium Total Bilirubin AST ALT Alkaline Phosphatase Troponin I Total Protein Albumin Globulin Albumin/Globulin Ratio Venous Blood Potassium Influenza Typ A,B (EIA) Negative for flu a/b 05/09/18 05/09/18 05:30 05:30 WBC 6.7 RBC 4.81 Hgb 13.8 D Hct 43.6 MCV 90.7 MCH 28.8 MCHC 31.8 L RDW 14.1 Plt Count 123 L MPV 9.8 Neut % (Auto) 68.7 Lymph % (Auto) 23.1 Andrews % (Auto) 5.6 Eos % (Auto) 2.4 Baso % (Auto) 0.2 Neut # (Auto) 4.6 Lymph # (Auto) 1.6 Andrews # (Auto) 0.4 Eos # (Auto) 0.2 Baso # (Auto) 0.0 Neutrophils % (Manual) Band Neutrophils % Lymphocytes % (Manual) Monocytes % (Manual) Eosinophils % (Manual) Metamyelocytes % Platelet Estimate RBC Morphology pO2 VBG pH VBG pCO2 VBG HCO3 VBG Total CO2 VBG O2 Sat (Calc) VBG Base Excess VBG Potassium Glucose Lactate FiO2 Sodium 147 Potassium 4.0 Chloride 117 H Carbon Dioxide 22 Anion Gap 12 BUN 17 Creatinine 1.0 Est GFR ( Amer) > 60 Est GFR (Non-Af Amer) 55 POC Glucose (mg/dL) Random Glucose 177 H Calcium 9.1 Magnesium Total Bilirubin AST ALT Alkaline Phosphatase Troponin I Total Protein Albumin Globulin Albumin/Globulin Ratio Venous Blood Potassium Influenza Typ A,B (EIA) Attending/Attestation - Attestation I have personally seen and examined this patient.: Yes I have fully participated in the care of the patient.: Yes I have reviewed all pertinent clinical information: Yes Notes (Text): 05/09/18 09:55 Patient seen and examined with resident. Case discussed and agreed with assessment and plan of management
[2018-05-08] MEDS ORDERED: BRIVARACETAM PO SCH (22:00)
[2018-05-09] MEDS ORDERED: Dextrose 50% SYRINGE Inj (50 ml) IV PRN (02:30)
[2018-05-09] MEDS ORDERED: Glucagon Recombinant 1 mg Inj IM PRN (02:30)
[2018-05-09 07:00] LABS: BASO % 0.2 % (0.0-2.0); EOS # 0.2 K/uL (0.0-0.7); EOS % 2.4 % (0.0-4.0); HEMOGLOBIN 13.8 g/dL (12.0-16.0); LYMPH # 1.6 K/uL (1.0-4.3); LYMPH % 23.1 % (20.0-40.0); MEAN CELL VOLUME 90.7 fl (81.0-99.0); MEAN CORPUSCULAR HEMOGLOBIN 28.8 pg (27.0-31.0); MEAN CORPUSCULAR HGB CONC 31.8 g/dL (33.0-37.0); MEAN PLATELET VOLUME 9.8 fl (7.2-11.7); MONO # 0.4 K/uL (0.0-0.8); MONO % 5.6 % (0.0-10.0); NEUT # 4.6 K/uL (1.8-7.0); NEUT % 68.7 % (50.0-75.0); NRBC % 0.1 % (0.0-0.0); RBC 4.81 Mil/uL (3.80-5.20); RED CELL DISTRIBUTION WIDTH 14.1 % (11.5-14.5); WHITE BLOOD COUNT 6.7 K/uL (4.8-10.8)
[2018-05-09] MEDS ORDERED: Insulin Lispro (humaLOG) 100 Units/ml Inj SC SCH (07:00)
[2018-05-09 07:36] LABS: BLOOD UREA NITROGEN 17 mg/dl (7-17); CALCIUM 9.1 mg/dL (8.4-10.2); GFR NON-AFRICAN AMERICAN 55
[2018-05-09 08:21] VITALS: RESP 20; O2SAT 97
[2018-05-09] MEDS ORDERED: Pantoprazole 40 mg EC Tab PO SCH (09:00)
[2018-05-09] MEDS ORDERED: Enoxaparin 40 mg Syringe SC SCH (09:00)
[2018-05-09] MEDS: Insulin Lispro (humaLOG) 100 Units/ml Inj SC SCH ×3 (09:38→12:34)
[2018-05-09 12:41] VITALS: BP 133/79; PULSE 73; TEMP 98.7
--- NOTE | 2018-05-09 14:15 | CP.PCM.DIS ---
<Turner Krueger - Last Filed: 05/09/18 15:04> Provider - Provider Date of Admission: 05/08/18 17:56 Attending physician: Cayetano Lane MD Primary care physician: Dr. Tricia Sweeney Consults: 05/09/18 10:58 Wound Care [Nursing Referral for Wound Care] Routine Comment: Physician Instructions: Reason For Exam: Open sores on sacrum Time Spent in preparation of Discharge (in minutes): 35 Diagnosis - Discharge Diagnosis (1) Dehydration Status: Acute Comment: --Stable, afebrile, leukocytosis on admission most likely due to hemoconcentration from dehydration. (2) Leukocytosis, unspecified Status: Acute Comment: --Stable, afebrile, leukocytosis on admission most likely due to hemoconcentration from dehydration. No source of infection. Hospital Course - Lab Results Lab Results: Most Recent Lab Values WBC 6.7 K/uL (4.8-10.8) 05/09/18 05:30 RBC 4.81 Mil/uL (3.80-5.20) 05/09/18 05:30 Hgb 13.8 g/dL (12.0-16.0) D 05/09/18 05:30 Hct 43.6 % (34.0-47.0) 05/09/18 05:30 MCV 90.7 fl (81.0-99.0) 05/09/18 05:30 MCH 28.8 pg (27.0-31.0) 05/09/18 05:30 MCHC 31.8 g/dL (33.0-37.0) L 05/09/18 05:30 RDW 14.1 % (11.5-14.5) 05/09/18 05:30 Plt Count 123 K/uL (130-400) L 05/09/18 05:30 MPV 9.8 fl (7.2-11.7) 05/09/18 05:30 Neut % (Auto) 68.7 % (50.0-75.0) 05/09/18 05:30 Lymph % (Auto) 23.1 % (20.0-40.0) 05/09/18 05:30 [place] % (Auto) 5.6 % (0.0-10.0) 05/09/18 05:30 Eos % (Auto) 2.4 % (0.0-4.0) 05/09/18 05:30 Baso % (Auto) 0.2 % (0.0-2.0) 05/09/18 05:30 Neut # (Auto) 4.6 K/uL (1.8-7.0) 05/09/18 05:30 Lymph # (Auto) 1.6 K/uL (1.0-4.3) 05/09/18 05:30 [place] # (Auto) 0.4 K/uL (0.0-0.8) 05/09/18 05:30 Eos # (Auto) 0.2 K/uL (0.0-0.7) 05/09/18 05:30 Baso # (Auto) 0.0 K/uL (0.0-0.2) 05/09/18 05:30 Neutrophils % (Manual) 82 % (42-75) H 05/08/18 15:40 Band Neutrophils % 3 % (0-2) H 05/08/18 15:40 Lymphocytes % (Manual) 11 % (20-50) L 05/08/18 15:40 Monocytes % (Manual) 2 % (0-10) 05/08/18 15:40 Eosinophils % (Manual) 1 % (0-7) 05/08/18 15:40 Metamyelocytes % 1 % (0-0) H 05/08/18 15:40 Platelet Estimate Slightly decreased (NORMAL) L 05/08/18 15:40 RBC Morphology Normal (NORMAL) 05/08/18 15:40 pO2 45 mm/Hg (30-55) 05/08/18 15:57 VBG pH 7.31 (7.32-7.43) L 05/08/18 15:57 VBG pCO2 43 mmHg (40-60) 05/08/18 15:57 VBG HCO3 20.8 mmol/L 05/08/18 15:57 VBG Total CO2 23.0 mmol/L (22-28) 05/08/18 15:57 VBG O2 Sat (Calc) 77.2 % (40-65) H 05/08/18 15:57 VBG Base Excess -4.5 mmol/L (0.0-2.0) L 05/08/18 15:57 VBG Potassium 4.1 mmol/L (3.6-5.2) 05/08/18 15:57 Sodium 140.0 mmol/L (132-148) 05/08/18 15:57 Chloride 113.0 mmol/L (98-107) H 05/08/18 15:57 Glucose 218 mg/dL (65-105) H 05/08/18 15:57 Lactate 1.8 mmol/L (0.7-2.1) 05/08/18 15:57 FiO2 21.0 % 05/08/18 15:57 Sodium 147 mmol/l (132-148) 05/09/18 05:30 Potassium 4.0 MMOL/L (3.6-5.0) 05/09/18 05:30 Chloride 117 mmol/L (98-107) H 05/09/18 05:30 Carbon Dioxide 22 mmol/L (22-30) 05/09/18 05:30 Anion Gap 12 (10-20) 05/09/18 05:30 BUN 17 mg/dl (7-17) 05/09/18 05:30 Creatinine 1.0 mg/dl (0.7-1.2) 05/09/18 05:30 Est GFR ( Amer) > 60 05/09/18 05:30 Est GFR (Non-Af Amer) 55 05/09/18 05:30 POC Glucose (mg/dL) 156 mg/dL (65-110) H 05/09/18 12:11 Random Glucose 177 mg/dL (65-105) H 05/09/18 05:30 Calcium 9.1 mg/dL (8.4-10.2) 05/09/18 05:30 Magnesium 2.1 MG/DL (1.6-2.3) 05/08/18 15:40 Total Bilirubin 0.5 mg/dl (0.2-1.3) 05/08/18 15:40 AST 29 U/L (14-36) 05/08/18 15:40 ALT 20 U/L (9-52) 05/08/18 15:40 Alkaline Phosphatase 113 U/L (38-126) 05/08/18 15:40 Troponin I < 0.0120 ng/mL (0.00-0.120) 05/08/18 15:40 Total Protein 7.5 G/DL (6.3-8.2) 05/08/18 15:40 Albumin 4.2 g/dL (3.5-5.0) 05/08/18 15:40 Globulin 3.3 gm/dL (2.2-3.9) 05/08/18 15:40 Albumin/Globulin Ratio 1.3 (1.0-2.1) 05/08/18 15:40 Venous Blood Potassium 4.1 mmol/L (3.6-5.2) 05/08/18 15:57 Influenza Typ A,B (EIA) Negative for flu a/b (NEGATIVE) 05/08/18 16:37 - Hospital Course Hospital Course: 67 y/o female with a PMHx of HTN, Dementia, and DM admitted for management of dehydration after several episodes of diarrhea and 1 episode of vomiting. Pt presented tachycardia on admission and elevated leukocytes. IV fluids, NSS 1L bolus and maintenance at 80mL/hr were administered. CXR: Poor inspiration, crowded bronchovascular markings and mild bibasilar atelectasis, NO penumonia. Pt remained afebrile during overnight hospitalization, tolerated PO. Today, pt stable, afebrile, at her baseline, labs showed NO leukocytosis. Leukocytosis on admission most likely due to hemoconcentration from dehydration. Pt is to discharged home with recommendations to f/u with PCP within 1 week. - Date & Time of H&P Date of H&P: 05/08/18 Time of H&P: 18:23 Discharge Exam - Head Exam Head Exam: ATRAUMATIC, NORMAL INSPECTION, NORMOCEPHALIC - Eye Exam Eye Exam: Normal appearance - ENT Exam ENT Exam: Mucous Membranes Moist - Neck Exam Neck exam: Full Rom - Respiratory Exam Respiratory Exam: NORMAL BREATHING PATTERN, UNREMARKABLE - Cardiovascular Exam Cardiovascular Exam: REGULAR RHYTHM, +S1, +S2 - GI/Abdominal Exam GI & Abdominal Exam: Normal Bowel Sounds, Soft. absent: Distended, Guarding, Tenderness - Neurological Exam Additional comments: Non verbal but responds to voice and able to follow simple commands. Discharge Plan - Follow Up Plan Condition: FAIR Disposition: HOME/ ROUTINE Instructions: Dehydration (DC) Additional Instructions: Needs total care, skin care, feeder, incontinent care. Referrals: Tricia Sweeney MD [Family Provider] - <Lane,Cayetano D - Last Filed: 05/09/18 15:37> Provider - Provider Date of Admission: 05/08/18 17:56 Attending physician: Cayetano Lane MD Consults: 05/09/18 10:58 Wound Care [Nursing Referral for Wound Care] Routine Comment: Physician Instructions: Reason For Exam: Open sores on [facility] Course - Lab Results Lab Results: Most Recent Lab Values WBC 6.7 K/uL (4.8-10.8) 05/09/18 05:30 RBC 4.81 Mil/uL (3.80-5.20) 05/09/18 05:30 Hgb 13.8 g/dL (12.0-16.0) D 05/09/18 05:30 Hct 43.6 % (34.0-47.0) 05/09/18 05:30 MCV 90.7 fl (81.0-99.0) 05/09/18 05:30 MCH 28.8 pg (27.0-31.0) 05/09/18 05:30 MCHC 31.8 g/dL (33.0-37.0) L 05/09/18 05:30 RDW 14.1 % (11.5-14.5) 05/09/18 05:30 Plt Count 123 K/uL (130-400) L 05/09/18 05:30 MPV 9.8 fl (7.2-11.7) 05/09/18 05:30 Neut % (Auto) 68.7 % (50.0-75.0) 05/09/18 05:30 Lymph % (Auto) 23.1 % (20.0-40.0) 05/09/18 05:30 [place] % (Auto) 5.6 % (0.0-10.0) 05/09/18 05:30 Eos % (Auto) 2.4 % (0.0-4.0) 05/09/18 05:30 Baso % (Auto) 0.2 % (0.0-2.0) 05/09/18 05:30 Neut # (Auto) 4.6 K/uL (1.8-7.0) 05/09/18 05:30 Lymph # (Auto) 1.6 K/uL (1.0-4.3) 05/09/18 05:30 [place] # (Auto) 0.4 K/uL (0.0-0.8) 05/09/18 05:30 Eos # (Auto) 0.2 K/uL (0.0-0.7) 05/09/18 05:30 Baso # (Auto) 0.0 K/uL (0.0-0.2) 05/09/18 05:30 Neutrophils % (Manual) 82 % (42-75) H 05/08/18 15:40 Band Neutrophils % 3 % (0-2) H 05/08/18 15:40 Lymphocytes % (Manual) 11 % (20-50) L 05/08/18 15:40 Monocytes % (Manual) 2 % (0-10) 05/08/18 15:40 Eosinophils % (Manual) 1 % (0-7) 05/08/18 15:40 Metamyelocytes % 1 % (0-0) H 05/08/18 15:40 Platelet Estimate Slightly decreased (NORMAL) L 05/08/18 15:40 RBC Morphology Normal (NORMAL) 05/08/18 15:40 pO2 45 mm/Hg (30-55) 05/08/18 15:57 VBG pH 7.31 (7.32-7.43) L 05/08/18 15:57 VBG pCO2 43 mmHg (40-60) 05/08/18 15:57 VBG HCO3 20.8 mmol/L 05/08/18 15:57 VBG Total CO2 23.0 mmol/L (22-28) 05/08/18 15:57 VBG O2 Sat (Calc) 77.2 % (40-65) H 05/08/18 15:57 VBG Base Excess -4.5 mmol/L (0.0-2.0) L 05/08/18 15:57 VBG Potassium 4.1 mmol/L (3.6-5.2) 05/08/18 15:57 Sodium 140.0 mmol/L (132-148) 05/08/18 15:57 Chloride 113.0 mmol/L (98-107) H 05/08/18 15:57 Glucose 218 mg/dL (65-105) H 05/08/18 15:57 Lactate 1.8 mmol/L (0.7-2.1) 05/08/18 15:57 FiO2 21.0 % 05/08/18 15:57 Sodium 147 mmol/l (132-148) 05/09/18 05:30 Potassium 4.0 MMOL/L (3.6-5.0) 05/09/18 05:30 Chloride 117 mmol/L (98-107) H 05/09/18 05:30 Carbon Dioxide 22 mmol/L (22-30) 05/09/18 05:30 Anion Gap 12 (10-20) 05/09/18 05:30 BUN 17 mg/dl (7-17) 05/09/18 05:30 Creatinine 1.0 mg/dl (0.7-1.2) 05/09/18 05:30 Est GFR ( Amer) > 60 05/09/18 05:30 Est GFR (Non-Af Amer) 55 05/09/18 05:30 POC Glucose (mg/dL) 156 mg/dL (65-110) H 05/09/18 12:11 Random Glucose 177 mg/dL (65-105) H 05/09/18 05:30 Calcium 9.1 mg/dL (8.4-10.2) 05/09/18 05:30 Magnesium 2.1 MG/DL (1.6-2.3) 05/08/18 15:40 Total Bilirubin 0.5 mg/dl (0.2-1.3) 05/08/18 15:40 AST 29 U/L (14-36) 05/08/18 15:40 ALT 20 U/L (9-52) 05/08/18 15:40 Alkaline Phosphatase 113 U/L (38-126) 05/08/18 15:40 Troponin I < 0.0120 ng/mL (0.00-0.120) 05/08/18 15:40 Total Protein 7.5 G/DL (6.3-8.2) 05/08/18 15:40 Albumin 4.2 g/dL (3.5-5.0) 05/08/18 15:40 Globulin 3.3 gm/dL (2.2-3.9) 05/08/18 15:40 Albumin/Globulin Ratio 1.3 (1.0-2.1) 05/08/18 15:40 Venous Blood Potassium 4.1 mmol/L (3.6-5.2) 05/08/18 15:57 Influenza Typ A,B (EIA) Negative for flu a/b (NEGATIVE) 05/08/18 16:37 Attending/Attestation - Attestation I have personally seen and examined this patient.: Yes I have fully participated in the care of the patient.: Yes I have reviewed all pertinent clinical information, including history, physical exam and plan: Yes Notes (Text): 05/09/18 15:37 Patient seen and examined with resident. Case discussed and agreed with assessment.
[2018-05-14] MEDS ORDERED: Ergocalciferol 50,000 Intl Units Cap PO SCH (18:44)
== END 2018-05-09 15:15 | disposition home or self-care (01) ==
LOC: H.ER 14:39 → H.ERHOLD 17:56 → H.TEL 21:00
DX: E86.0 Dehydration (principal); F02.80 Dementia in other diseases classified elsewhere, unspecified severity, without behavioral disturbance, psychotic disturbance, mood disturbance, and anxiety; G30.9 Alzheimer's disease, unspecified; K52.9 Noninfective gastroenteritis and colitis, unspecified; I10 Essential (primary) hypertension; I69.351 Hemiplegia and hemiparesis following cerebral infarction affecting right dominant side; J98.11 Atelectasis; Z74.01 Bed confinement status; Z79.82 Long term (current) use of aspirin; Z87.891 Personal history of nicotine dependence; F32.9 Major depressive disorder, single episode, unspecified; R56.9 Unspecified convulsions; Z79.899 Other long term (current) drug therapy; R00.0 Tachycardia, unspecified; E11.9 Type 2 diabetes mellitus without complications
CPT/HCPCS: 36415; 71045; 80048; 80053; 82803; 82948; 83735; 84484; 85025; 87040; 87804; 96360; 99285; G0378; J7030